=== PATIENT | female | born 1995 | race Caucasian/White ===

== ENCOUNTER 2018-07-15 18:04 | Emergency (ER) | payer BC ==
[2018-07-15 18:26] VITALS: BP 139/93; PULSE 75; TEMP 97.7; BMI 33.0
[2018-07-15] MEDS ORDERED: DEXAMETHASONE 4 MG TABLET (FP) PO ONE (18:29)
--- NOTE | 2018-07-15 18:29 | PDOC ---
History of Present Illness - General Chief Complaint: Ear Problem Stated Complaint: QUINCY EAR PAIN, RECENT COUGH& COLD SX Time Seen by Provider: 07/15/18 18:14 - History of Present Illness Initial Comments: 07/15/18 18:23 Ms. Dia is a 23 yo female w/ no significant pmh who presents for evaluation of 6 days of cough, runny nose, and plugged ears. She reports this is normal for her colds. Denies any other complaints but is "tired of saying 'what?'" The patient denies chest pain, shortness of breath, headache and dizziness. Denies fever, chills, nausea, vomit, diarrhea and constipation. Denies dysuria, frequency, urgency and hematuria. Allergies: NKDA Past History - Past Medical History Allergies/Adverse Reactions: Allergies Allergy/AdvReac Type Severity Reaction Status Date / Time No Known Allergies Allergy Verified 07/15/18 18:07 Home Medications: Ambulatory Orders NK [No Known Home Medication] 07/15/18 Asthma: No Cancer: No Cardiac Disorders: No COPD: No Diabetes: No HTN: No Seizures: No Thyroid Disease: No - Suicide/Smoking/Psychosocial Hx Smoking History: Never smoked Have you smoked in the past 12 months: No Hx Alcohol Use: No Drug/Substance Use Hx: No Hx Substance Use Treatment: No Review of Systems - Review of Systems Comments:: 07/15/18 18:25 GENERAL/CONSTITUTIONAL: No fever or chills. No weakness. HEAD, EYES, EARS, NOSE AND THROAT: No change in vision. No ear pain or discharge. No sore throat. CARDIOVASCULAR: No chest pain or shortness of breath RESPIRATORY: +Intermittent cough; wheezing, or hemoptysis. GASTROINTESTINAL: No nausea, vomiting, diarrhea or constipation. GENITOURINARY: No dysuria, frequency, or change in urination. MUSCULOSKELETAL: No joint or muscle swelling or pain. No neck or back pain. SKIN: No rash NEUROLOGIC: No headache, vertigo, loss of consciousness, or change in strength/ sensation. ENDOCRINE: No increased thirst. No abnormal weight change HEMATOLOGIC/LYMPHATIC: No anemia, easy bleeding, or history of blood clots. ALLERGIC/IMMUNOLOGIC: No hives or skin allergy. *Physical Exam - Vital Signs Last Vital Signs Temp Pulse Resp BP Pulse Ox 97.7 F 75 18 139/93 100 07/15/18 18:04 07/15/18 18:04 07/15/18 18:04 07/15/18 18:04 07/15/18 18:04 - Physical Exam Comments: 07/15/18 18:26 GENERAL: Awake, alert, and fully oriented, in no acute distress HEAD: No signs of trauma, normocephalic, atraumatic EYES: PERRLA, EOMI, sclera anicteric, conjunctiva clear ENT:+Oropharynx and nares erythematous. TM's fluid filled. Otherwise auricles normal inspection, hearing grossly normal, nares patent, oropharynx clear without exudates. Moist mucosa NECK: Normal ROM, supple, no lymphadenopathy, JVD, or masses LUNGS: No distress, speaks full sentences, clear to auscultation bilaterally HEART: Regular rate and rhythm, normal S1 and S2, no murmurs, rubs or gallops, peripheral pulses normal and equal bilaterally. ABDOMEN: Soft, nontender, normoactive bowel sounds. No guarding, no rebound. No masses EXTREMITIES: Normal inspection, Normal range of motion, no edema. No clubbing or cyanosis. NEUROLOGICAL: Cranial nerves II through XII grossly intact. Normal speech, normal gait, no focal sensorimotor deficits SKIN: Warm, Dry, normal turgor, no rashes or lesions noted. Medical Decision Making - Medical Decision Making 07/15/18 18:30 Ms. Dia is a 23 yo female w/ pmh as described who presents for evaluation of viral illness. Decadron 10 given for symptomatic relief; patient otherwise given viral illness instructions and will f/u outpatient as needed. No concern for acute process at this time. Discharging to home. *DC/Admit/Observation/Transfer Diagnosis at time of Disposition: Viral illness - Discharge Dispostion Disposition: HOME Condition at time of disposition: Stable - Referrals - Patient Instructions Printed Discharge Instructions: DI for Viral Upper Respiratory Infection -- Adult Additional Instructions: Please follow-up with primary care provider in 1-2 days for further evaluation if symptoms persist. Return to ER if any fever, chills, pain, or other concerning symptoms. - Post Discharge Activity
--- NOTE | 2018-07-15 18:30 | PDOC ---
Attending Attestation - HPI HPI: 07/15/18 18:33 The patient is a 23 year old healthy female presenting with clogged ears and runny nose after having a cold for the past five days. Patient reports difficulty hearing at times. Patient states that her ears normally get clogged when she is sick. The patient denies chest pain, shortness of breath, headache and dizziness. Denies fever, chills, nausea, vomit, diarrhea and constipation. Denies dysuria, frequency, urgency and hematuria. Allergies: NKA Past surgical history: None reported. Social history: No reported alcohol, drug, or cigarette use. <Ella Salcedo - Last Filed: 07/15/18 18:33> - Resident Resident Name: Lewis Feldman - ED Attending Attestation I have performed the following: I have examined & evaluated the patient, The case was reviewed & discussed with the resident, I agree w/resident's findings & plan, Exceptions are as noted - Physicial Exam PE: GENERAL: Awake, alert, and fully oriented, in no acute distress HEAD: No signs of trauma EYES: PERRLA, EOMI, sclera anicteric, conjunctiva clear ENT: Auricles normal inspection, hearing grossly normal, nares patent, oropharynx clear without exudates. Moist mucosa. R TM with scarring at the 7 o' clock position, clear effusion. L TM with clear effusion. No erythema. NECK: Normal ROM, supple, no lymphadenopathy, JVD, or masses LUNGS: Breath sounds equal, clear to auscultation bilaterally. No wheezes, and no crackles HEART: Regular rate and rhythm, normal S1 and S2, no murmurs, rubs or gallops ABDOMEN: Soft, nontender, normoactive bowel sounds. No guarding, no rebound. No masses EXTREMITIES: Normal range of motion, no edema. No clubbing or cyanosis. No cords, erythema, or tenderness NEUROLOGICAL: Cranial nerves II through XII grossly intact. Normal speech, normal gait SKIN: Warm, Dry, normal turgor, no rashes or lesions noted. - Medical Decision Making Ear pain is likely related to inflammation from recent viral illness. No signs of acute otitis media. Stable for DC home. <Irish Day - Last Filed: 07/17/18 07:39>
[2018-07-15] MEDS ORDERED: DEXAMETHASONE 4 MG TABLET (FP) ONE (18:37)
== END 2018-07-15 18:41 | disposition home or self-care (01) ==
LOC: FER 18:04
DX: B34.9 Viral infection, unspecified (principal)
CPT/HCPCS: 99282-25

== ENCOUNTER 2020-01-02 10:33 | Emergency (ER) | payer BC ==
--- NOTE | 2020-01-02 10:53 | PDOC ---
History of Present Illness - General Chief Complaint: Ear Problem Stated Complaint: EAR PAIN Time Seen by Provider: 01/02/20 10:40 History Source: Patient Exam Limitations: No Limitations - History of Present Illness Initial Comments: 01/02/20 10:53 24y F no significant pmhx presents with 1 day of L ear pain and fullness. The patient describes her left ear discomfort as a fullness rather than outright pain She denies any associated fever, chills, headache, nasal congestion, sore throat, body aches, difficulty hearing, Neck stiffness, chest pain, shortness of breath, nausea, vomiting, abdominal pain. Patient states she has a history of ear infections in the remote past and has had Tubes that have since been removed. She states that Her son had recent ear infection that was treated and he has improved she is concerned she may have a similar ear infection. ROS: Constitutional - no reported Fever, Chills, HEENT: +Lear fullness no reported vision changes, sore throat, neck pain Respiratory: no reported cough, sob, hemoptysis Cardiac: no reported chest pain, Abd/GI: no reported abd pain, nausea, vomiting, Musculskelatal - no reported back pain, joint swelling skin - no reported bruising, erythema, rash neurological: no reported headache, numbness, focal weakness, tingling, Exam: GENERAL: The patient is awake, alert, and fully oriented, Nontoxic - in no acute distress. HEAD: Normocephalic, atraumatic. EYES: extraocular movements intact, sclera anicteric, conjunctiva clear. ENT: Normal voice, Moist mucous membranes, no significant erythema/induration in TM/ear cannal bilaterally, scarred/opaque appearing TMs present b/l, no mastoid tenderness or pain with manipulation of pinna. NECK: Normal range of motion, supple LUNGS: Breath sounds equal, clear to auscultation bilaterally. No wheezes, no rhonchi, no rales. HEART: Regular rate and rhythm, normal S1 and S2 without murmur, rub or gallop. ABDOMEN: Soft, nontender, No guarding, no rebound. No CVA tenderness EXTREMITIES: Normal range of motion, no edema. NEUROLOGICAL: No facial assymetry, Normal speech, moving all 4 extremitesi spontaneously and symmetrically PSYCH: Normal mood, normal affect. SKIN: Warm, Dry, normal turgor, no signs of ear infection, mastoitis, meningitis, URI will recommend supportive measures, PMD/eNT or return for fu if sypmts worse / persistent I discussed the physical exam findings, ancillary test results and final diagnoses with the patient. I answered all of the patient's questions. The patient was satisfied with the care received and felt comfortable with the discharge plan and treatment plan. The patient will call their primary care physician within 24 hours to arrange follow-up and will return to the Emergency Department with any new, persistent or worsening symptoms. Past History - Past Medical History Allergies/Adverse Reactions: Allergies Allergy/AdvReac Type Severity Reaction Status Date / Time No Known Allergies Allergy Verified 01/02/20 10:34 Home Medications: Ambulatory Orders NK [No Known Home Medication] 07/15/18 Asthma: No Cancer: No Cardiac Disorders: No COPD: No Diabetes: No HTN: No Seizures: No Thyroid Disease: No - Psycho Social/Smoking Cessation Hx Smoking History: Never smoked Have you smoked in the past 12 months: No Hx Alcohol Use: No Drug/Substance Use Hx: No Hx Substance Use Treatment: No *Physical Exam - Vital Signs Last Vital Signs Temp Pulse Resp BP Pulse Ox 98.3 F 71 16 138/86 100 01/02/20 10:33 01/02/20 10:33 01/02/20 10:33 01/02/20 10:33 01/02/20 10:33 Discharge - Discharge Information Problems reviewed: Yes Clinical Impression/Diagnosis: Sensation of fullness in left ear Condition: Improved Disposition: HOME - Admission No - Follow up/Referral Referrals: Shilo Fortune MD [Staff Physician] - - Patient Discharge Instructions Patient Printed Discharge Instructions: DI for Ear Pain-Adult Additional Instructions: Return to the emergency department immediately with ANY new, persistent or worsening symptoms inculding pain, fevers, headache, or any other concerns. You MUST call and follow up with your doctor or an ENT doctor in 5 days for further evaluation of your symptoms. Results were discussed with you. Please make sure your doctor reviews the results of your emergency evaluation. Your Emergency Department visit is not complete without a follow up with your doctor. Print Language: KOREAN - Post Discharge Activity
[2020-01-02 11:00] VITALS: BP 138/86; PULSE 71; TEMP 98.3; BMI 32.1
== END 2020-01-02 11:15 | disposition home or self-care (01) ==
LOC: FER 10:33
DX: H93.8X2 Other specified disorders of left ear (principal)
CPT/HCPCS: 99281-25